=== PATIENT | female | born 1985 | race Caucasian/White ===

== ENCOUNTER → 2021-09-28 | Outpatient (CLI) | payer OTHER ==
[~2021-09-28] MED LIST: CELEBREX200 MG PO; CYMBALTA60 MG PO; HYDROCODON-ACE1 EAC2 PO; PERCOCET 5-3251 EACH PO; ULTRAM50 MG PO; VITAMIN D21250 MCG PO; VYVANSE30 MG PO
[2021-09-28 09:39] LABS: HEMOGLOBIN 12.4 gm/dl (12.3-15.3); RED BLOOD COUNT 4.26 M/UL (4.00-5.10); WHITE BLOOD COUNT 6.5 K/UL (4.5-11.0)
== END ==
LOC: OPSV2 08:37
PROVIDERS: Obstetrics & Gynecology
DX: Z01.812 Encounter for preprocedural laboratory examination (principal); R10.2 Pelvic and perineal pain
CPT/HCPCS: 36415; 81001; 85025

== ENCOUNTER 2021-09-29 05:25 | Day surgery (SDC) | payer OTHER ==
[~2021-09-29] VITALS: Ht 157.5 cm; Wt 91.6 kg
[~2021-09-29 05:25] MED LIST changes: -PERCOCET 5-3251 EACH PO
[2021-09-29] MEDS ORDERED: PERCOCET 5-3251 EACH PO (10:20)
[2021-09-30 05:17] LABS: HEMOGLOBIN 11.7 gm/dl (12.3-15.3)
== END 2021-09-30 12:55 | disposition home or self-care (01) ==
LOC: OR 05:25 → M/S 10:55 → OR 09-30 12:55
PROVIDERS: Obstetrics & Gynecology
DX: N80.0 Endometriosis of uterus (principal); D21.9 Benign neoplasm of connective and other soft tissue, unspecified; N92.6 Irregular menstruation, unspecified; E66.9 Obesity, unspecified; F17.200 Nicotine dependence, unspecified, uncomplicated; F41.9 Anxiety disorder, unspecified; Z79.891 Long term (current) use of opiate analgesic; Z79.899 Other long term (current) drug therapy; Z68.36 Body mass index [BMI] 36.0-36.9, adult
CPT/HCPCS: 85014; 85018; J0690; J1100; J1170; J1885; J2001; J2250; J2405; J2704; J3010; J7120